=== PATIENT | male | born 1985 | race American Indian/Alaskan Native ===

== ENCOUNTER 2019-07-03 13:16 | Emergency (ER) | payer SELFPAY | END 2019-07-04 07:49 | disposition left against medical advice (07) | LOC: ED 13:16 | DX: R10.9 Unspecified abdominal pain (principal); Z53.21 Procedure and treatment not carried out due to patient leaving prior to being seen by health care provider ==

== ENCOUNTER 2019-07-05 09:31 | Emergency (ER) | payer OTHER ==
[2019-07-05] MEDS ORDERED: IBUPROFEN 800 MG TAB PO ONE (10:54)
[2019-07-05 11:00] LABS: Bacteria,Urine 1+ /HPF (Negative); Bilirubin,Urine NEG (Negative); Blood,Urine NEG (Negative); Color,Urine Yellow (Yellow); Mucus,Urine FEW /HPF; Protein,Urine <15 mg/dL mg/dL (Negative); Urobilinogen,Urine < 2.0 mg/dL (<2.0)
--- NOTE | 2019-07-05 11:41 | Ultrasound Report ---
SCROTAL ULTRASOUND WITH DOPPLER HISTORY: right testicular pain COMPARISON: None. TECHNIQUE: Grayscale, color and spectral Doppler images were obtained of the scrotum. FINDINGS: RIGHT: Right testicle: No significant abnormality. No mass. Right testicular size: 3.7 x 2.2 x 3.8 cm. Right epididymis: Mildly enlarged with increased vascularity. Tiny benign right epididymal head cyst measures 1.4 mm. LEFT: Left testicle: No significant abnormality. No mass. Left testicular size: 4.9 x 2.3 x 3.0 cm. Left epididymis: No significant abnormality. Additional findings: A small right hydrocele. IMPRESSION: 1. Right mild acute epididymitis. 2. No abscess. 3. Normal testes. Signer Name: Fred Baldwin MD Signed: 07/05/2019 11:36 AM Workstation Name: [id number]
[2019-07-05] MEDS ORDERED: LIDOCAINE-MPF (1%) 10 MG/1 ML VIAL 5 ML INFILTRATI ONE (11:57)
[2019-07-05] MEDS ORDERED: AZITHROMYCIN 250 MG TAB PO ONE (11:57)
--- NOTE | 2019-07-05 12:03 | Emergency Department Report ---
ED Male HPI - General Chief complaint: Urogenital-Male Stated complaint: UTI Time Seen by Provider: 07/05/19 10:25 Source: patient Mode of arrival: Ambulatory Limitations: No Limitations - History of Present Illness Initial comments: Patient is a 33-year-old F [place] male with no significant past medical history was presenting with right sided testicular pain. Patient states that his girlfriend was treated for a urinary tract infection approximately 2 weeks ago. Patient is denies any dysuria or urinary frequency or penile discharge. Patient states that he is developed over the past 2days swelling and tenderness to the right testicle. Patient denies fevers chills cough cold congestion nausea or vomiting. - Related Data Previous Rx's Medication Instructions Recorded Last Taken Type Ciprofloxacin HCl [Ciprofloxacin 500 mg PO Q12HR #14 tab 07/05/19 Unknown Rx TAB] Ketorolac [Toradol] 10 mg PO Q6H PRN #12 tablet 07/05/19 Unknown Rx traMADoL [Ultram] 50 mg PO Q6HR PRN #12 tablet 07/05/19 Unknown Rx Allergies Allergy/AdvReac Type Severity Reaction Status Date / Time No Known Allergies Allergy Verified 07/03/19 13:24 ED Review of Systems ROS: Stated complaint: UTI Other details as noted in HPI Comment: All other systems reviewed and negative ED Past Medical Hx - Past Medical History Previous Medical History?: No - Surgical History Past Surgical History?: No - Social History Smoking Status: Current Every Day Smoker Substance Use Type: Alcohol - Medications Home Medications: Home Medications Medication Instructions Recorded Confirmed Last Taken Type Ciprofloxacin HCl [Ciprofloxacin 500 mg PO Q12HR #14 tab 07/05/19 Unknown Rx TAB] Ketorolac [Toradol] 10 mg PO Q6H PRN #12 tablet 07/05/19 Unknown Rx traMADoL [Ultram] 50 mg PO Q6HR PRN #12 tablet 07/05/19 Unknown Rx ED Physical Exam - General Limitations: No Limitations General appearance: alert, in no apparent distress - Head Head exam: Present: atraumatic, normocephalic - Eye Eye exam: Present: normal appearance, PERRL, EOMI - ENT ENT exam: Present: mucous membranes moist - Neck Neck exam: Present: normal inspection - Respiratory Respiratory exam: Present: normal lung sounds bilaterally. Absent: respiratory distress, wheezes, rales, rhonchi - Cardiovascular Cardiovascular Exam: Present: regular rate, normal rhythm. Absent: systolic murmur, diastolic murmur, rubs, gallop - GI/Abdominal GI/Abdominal exam: Present: soft, normal bowel sounds. Absent: tenderness, guarding, rebound - Rectal Rectal exam: Present: deferred - exam: Present: testicular tenderness, scrotal swelling (right), circumcision. Absent: urethral discharge - Extremities Exam Extremities exam: Present: normal inspection - Back Exam Back exam: Present: normal inspection - Neurological Exam Neurological exam: Present: alert, oriented X3 - Psychiatric Psychiatric exam: Present: normal affect, normal mood - Skin Skin exam: Present: warm, dry, intact, normal color. Absent: rash ED Course Vital Signs 07/05/19 09:35 Temperature 97.3 F L Pulse Rate 81 Respiratory 16 Rate Blood Pressure 123/78 O2 Sat by Pulse 99 Oximetry ED Medical Decision Making - Lab Data Lab Results 07/05/19 Range/Units Unknown Urine Color Yellow (Yellow) Urine Turbidity Slightly-cloudy (Clear) Urine pH 5.0 (5.0-7.0) Ur Specific [place] 1.029 (1.003-1.030) Urine Protein <15 mg/dl (Negative) mg/dL Urine Glucose (UA) Neg (Negative) mg/dL Urine Ketones Neg (Negative) mg/dL Urine Blood Neg (Negative) Urine Nitrite Neg (Negative) Urine Bilirubin Neg (Negative) Urine Urobilinogen < 2.0 (<2.0) mg/dL Ur Leukocyte Esterase Mod (Negative) Urine WBC (Auto) 113.0 H (0.0-6.0) /HPF Urine RBC (Auto) 4.0 (0.0-6.0) /HPF U Epithel Cells (Auto) 2.0 (0-13.0) /HPF Urine Bacteria (Auto) 1+ (Negative) /HPF Urine Mucus Few /HPF - Radiology Data Age/Sex: 33 / M ADM Date: 07/05/19 Loc: ED Attending Dr: Ordering Physician: CHANDNI BANKS MD Date of Service: 07/05/19 Procedure(s): US testicular doppler comp Accession Number(s): [id number] cc: CHANDNI BANKS MD SCROTAL ULTRASOUND WITH DOPPLER HISTORY: right testicular pain COMPARISON: None. TECHNIQUE: Grayscale, color and spectral Doppler images were obtained of the scrotum. FINDINGS: RIGHT: Right testicle: No significant abnormality. No mass. Right testicular size: 3.7 x 2.2 x 3.8 cm. Right epididymis: Mildly enlarged with increased vascularity. Tiny benign right epididymal head cyst measures 1.4 mm. LEFT: Left testicle: No significant abnormality. No mass. Left testicular size: 4.9 x 2.3 x 3.0 cm. Left epididymis: No significant abnormality. Additional findings: A small right hydrocele. IMPRESSION: 1. Right mild acute epididymitis. 2. No abscess. 3. Normal testes. Signer Name: Fred Baldwin MD Signed: 07/05/2019 11:36 AM Workstation Name: [id number] - Medical Decision Making Patient's ultrasound was consistent with a right-sided epididymitis. Patient likely has a sexually transmitted disease. Cultures been sent for gonorrhea and chlamydia. Patient be treated with Cipro at home but also has been given Rocephin and azithromycin here in the emergency department. Critical care attestation.: If time is entered above; I have spent that time in minutes in the direct care of this critically ill patient, excluding procedure time. ED Disposition Clinical Impression: Acute epididymitis Disposition: DC-01 TO HOME OR SELFCARE Is pt being admited?: No Does the pt Need Aspirin: No Condition: Stable Instructions: Epididymitis (ED) Referrals: INDU MOSHER MD [Primary Care Provider] - 3-5 Days Forms: STI Treatment and Prevention Time of Disposition: 12:02
[2019-07-05 12:38] VITALS: BP 124/77
== END 2019-07-05 12:44 | disposition home or self-care (01) ==
LOC: ED 09:31
DX: N45.1 Epididymitis (principal); F17.200 Nicotine dependence, unspecified, uncomplicated; Z79.899 Other long term (current) drug therapy
CPT/HCPCS: 81001; 93975; 96372; 99284; J0696